=== PATIENT | female | born 1995 | race Caucasian/White ===

== ENCOUNTER 2016-09-12 16:39 | Emergency (ER) | payer BC ==
[~2016-09-12] VITALS: Ht 167.6 cm; Wt 51.6 kg
[~2016-09-12 16:39] MED LIST: CIPR-255 PO; ONDA4TAB7 SL
[2016-09-12 16:44] VITALS: TEMP 37.2; Ht 167.6 cm; Wt 51.6 kg
[2016-09-12] MEDS ORDERED: IBUPROFEN 600 MG TAB PO STA (17:12)
[2016-09-12] MEDS ORDERED: RABIES IMMUNE GLOBULIN (HUMAN) 150 INTER.UNIT/ML 2 ML VIAL IM. ONE (17:15)
[2016-09-12] MEDS ORDERED: RABIES VACCINE (IMOVAX) HUMAN DIPL CELL 2.5 INTER.UNIT/ML SYR IM. ONE (17:15)
[2016-09-12] MEDS ORDERED: METR-163 PO (18:00)
[2016-09-12] MEDS ORDERED: CIPR1TAB10 PO (18:00)
[2016-09-12 18:20] VITALS: BP 137/90; PULSE 81; O2SAT 98
--- NOTE | 2016-09-13 02:14 | EMERGENCY ROOM VISIT NOTE ---
ED Visit Note First contact with patient: 16:49 Chief Complaint: Cat bite. History of Present Illness: Ms. Cuadra is a 20-year-old female who ambulates into the ED reporting a cat bite on the posterior right shoulder. Patient reports last evening she was attempted to separate to cats that were fighting. One of was her roommates and the other one was a stray cat. She reports when she picked up the roommates cat and put it over the shoulder the cat bit her. She did clean the cat bite. She does report the cat's immunization status is not up-to-date for rabies. Additionally she reports she is having a throbbing stabbing sensation in the area of her cat bite. She rates her discomfort 5/10. Her pain is nonradiating. Her pain worsens with palpation. She has not identified any alleviating factors related to the pain. She has not taken any medications for pain prior to arrival at the hospital. She denies any associated symptoms. She does report she cleansed the wound with soap and water and covered with a small amount of antibiotic ointment. She denies fevers, chills, sweats, chest pain, shortness of breath, abdominal pain, decreased appetite, nausea, vomiting, extremity weakness/numbness/ tingling. Review of Systems: As noted above in history of present illness. 8 body systems were reviewed and found to be negative as noted above. Past Medical History: Acid reflux. Current Medications: control. Allergies to Medications: Penicillin. Social History: Patient is currently employed; she feels safe in her home environment; she denies tobacco use; she admits to alcohol use. Tetanus Immunization Status: Patient did not feel she was up-to-date on her tetanus but does report just this year she graduated college indicating she should've been updated at age 16. Physical Examination: Vital Signs: Date Time Temp Pulse Resp B/P Pulse Ox O2 Delivery O2 Flow Rate FiO2 09/12/16 18:20 81 18 137/90 98 09/12/16 16:44 37.2 91 18 140/89 98 Room Air GENERAL: 20-year-old female in mild distress due to pain, nontoxic-appearing, afebrile and hemodynamically stable. NEUROLOGICAL: Awake, alert and oriented to person, place and time. Answering questions appropriately and following commands. Normal gait. Good hand eye coordination. SKIN: Warm, dry and pink. Right Shoulder: Over the posterior shoulder I do see 2 puncture wounds. The areas mildly erythematous but not edematous. There is no lymphangitis. There is no appearance of cellulitis. HEENT: Atraumatic and normocephalic. THORAX: Lungs sounds are clear to auscultation and equal bilaterally with symmetrical chest wall. ABDOMEN: Flat, soft and nontender. Positive bowel sounds in all quadrants. No guarding, rigidity or organomegaly. RIGHT UPPER EXTREMITY: No gross bony deformities. Bites as noted above under SKIN. Full range of motion of the shoulder, elbow, forearm or wrist. All distal neurovascular statuses are intact and equal bilaterally. Patient is assessed as noted above. ED Course: Patient is assessed as noted above. Patient was given 600 mg of ibuprofen by mouth for pain, 2.5 IU of rabies vaccination IM and 1032 IU of rabies immunoglobulin IM. Patient was observed in the emergency department and had no reactions to her medications. Patient was educated about today's findings and instructed on her treatment plan ; she verbalizes understanding and agreement with this plan. Clinical Impression: Cat bite. Need for rabies prophylaxis. Disposition: Patient discharged home in stable condition; prior to departure she was reassessed and subjectively reported she was feeling slightly worse with all her immunizations in the form of pain. Plan: Patient was educated on comfort measures, wound care, signs of infection and mild and moderate side effects of her rabies vaccination series. Patient was prescribed ciprofloxacin 500 mg for 10 days and 500 mg of Flagyl 3 times a day for 10 days for antibiotic coverage. Patient was encouraged to follow-up with her primary care provider for mild side effects from the vaccinations. Patient was encouraged return to ED for signs of infection, serious or moderate side effects from vaccinations, worsening pain or any new/concerning symptoms.
[2016-09-26] MEDS ORDERED: BCPILLS PO (16:52)
== END 2016-09-12 18:22 | disposition home or self-care (01) ==
LOC: C.EDB 16:40 → C.EDD 18:22
DX: S41.051A Open bite of right shoulder, initial encounter (principal); W55.01XA Bitten by cat, initial encounter; K21.9 Gastro-esophageal reflux disease without esophagitis; Z79.3 Long term (current) use of hormonal contraceptives; Z23 Encounter for immunization

== ENCOUNTER 2016-09-15 12:46 | Emergency (ER) | payer BC ==
[~2016-09-15] VITALS: Ht 167.6 cm; Wt 52.1 kg
[~2016-09-15 12:46] MED LIST changes: -CIPR-255 PO; +CIPR1TAB10 PO; +METR-163 PO; -ONDA4TAB7 SL
[2016-09-15 12:47] VITALS: TEMP 36.6; Ht 167.6 cm; Wt 52.1 kg
[2016-09-15] MEDS ORDERED: RABIES VACCINE (IMOVAX) HUMAN DIPL CELL 2.5 INTER.UNIT/ML SYR IM. ONE (13:00)
--- NOTE | 2016-09-15 13:00 | EMERGENCY ROOM VISIT NOTE ---
ED Visit Note First contact with patient: 12:52 CHIEF COMPLAINT: Rabies prophylaxis HISTORY OF PRESENT ILLNESS: This 20-year-old female patient presents to the emergency department ambulatory for their second rabies shot. The patient has not had any complications from the previous injections. They deny any other complaints. REVIEW OF SYSTEMS: A 6 system review of systems was completed with positives and pertinent negatives listed in the HPI. ALLERGIES: Cefaclor, penicillin MEDICATIONS: Unchanged from previous PMH: Unchanged from previous visit. PHYSICAL EXAM: Vital Signs: Reviewed Nurse's notes, vital signs stable. GENERAL : This is a 20-year-old female, in no acute distress, well-developed, well- nourished. HEAD: Atraumatic, without temporal or scalp tenderness. EYES: PERRLA, EOMI, no discharge or injection. SKIN: Normal. NEUROLOGICAL: Alert and cooperative. Sensory and motor functions grossly intact. EMERGENCY DEPARTMENT COURSE: I examined the patient. The patient was given Imovax 1ml IM. The patient was observed for 20 minutes with no reaction. The patient was discharged home in stable condition. DIAGNOSIS: Rabies prophylaxis DISCHARGE INSTRUCTIONS: Continue vaccination schedule as directed. Return for any complications. Problem List Medical Problems: (1) Anxiety Status: Chronic (2) Depression Status: Chronic (3) Generalized anxiety disorder Status: Chronic (4) Panic disorder Status: Chronic Current/Historical Medications Scheduled Control Pills ( Control Pills), 1 TAB PO DAILY Ciprofloxacin Hcl (Cipro), 500 MG PO BID Metronidazole (Flagyl), 500 MG PO TID Allergies Coded Allergies: Cefaclor (Verified Allergy, Unknown, HIVES, 09/15/16) Penicillins (Verified Allergy, Unknown, HIVES, 09/15/16) Vital Signs Date Time Temp Pulse Resp B/P Pulse Ox O2 Delivery O2 Flow Rate FiO2 09/15/16 13:53 82 18 112/64 98 09/15/16 12:47 36.6 66 16 113/78 98 Room Air Medications Administered Medications (Trade) Dose Ordered Sig/Kiya Route Start Time Stop Time Status Last Admin Dose Admin Rabies Vaccine Human Diploid Cell (Imovax Rabies) 2.5 interunit ONCE ONCE IM. 09/15/16 13:00 09/15/16 13:01 DC 09/15/16 13:05 2.5 INTERUNIT Departure Information Dispostion Home / Self-Care Condition GOOD Referrals No Doctor, Assigned (PCP) Patient Instructions My [facility]
[2016-09-15 13:53] VITALS: BP 112/64; PULSE 82; O2SAT 98
[2016-09-26] MEDS ORDERED: BCPILLS PO (16:52)
== END 2016-09-15 13:53 | disposition home or self-care (01) ==
LOC: C.EDB 12:49 → C.EDD 13:53
DX: Z23 Encounter for immunization (principal); Z20.3 Contact with and (suspected) exposure to rabies; Z41.9 Encounter for procedure for purposes other than remedying health state, unspecified; F32.9 Major depressive disorder, single episode, unspecified; F41.1 Generalized anxiety disorder; Z79.899 Other long term (current) drug therapy; Z88.0 Allergy status to penicillin; Z88.8 Allergy status to other drugs, medicaments and biological substances

== ENCOUNTER 2016-09-19 13:08 | Emergency (ER) | payer BC ==
[~2016-09-19] VITALS: Ht 167.6 cm; Wt 50.1 kg
[2016-09-19 13:12] VITALS: BP 134/86; PULSE 88; TEMP 36.7; O2SAT 96; Ht 167.6 cm; Wt 50.1 kg
[2016-09-19] MEDS ORDERED: RABIES VACCINE (IMOVAX) HUMAN DIPL CELL 2.5 INTER.UNIT/ML SYR IM. ONE (13:13)
--- NOTE | 2016-09-19 13:34 | EMERGENCY ROOM VISIT NOTE ---
ED Visit Note First contact with patient: 13:16 CHIEF COMPLAINT: Rabies shot #3 HISTORY OF PRESENT ILLNESS: Patient is a 20-year-old white female who returns to the emergency department as advised for her third rabies vaccination. She was potentially exposed to rabies when she was bitten by a stray cat on the right shoulder one week ago. She was seen and evaluated here. She is taking ciprofloxacin and metronidazole as prescribed. She reports a lot of GI side effects from the antibiotics. She reports that her wounds are healing well. She denies any problems or concerns regarding the injections. REVIEW OF SYSTEMS: Review of systems as per HPI. All other systems reviewed were negative. At least 6 systems reviewed. PMH: Reviewed and unchanged from prior visit. SOCIAL HISTORY: Patient lives at home. PHYSICAL EXAM: Vital Signs: Reviewed Nurse's notes. HEAD: Atraumatic, without temporal or scalp tenderness. EYES: PERRL, EOMI, no discharge or injection. SKIN: Healing puncture wounds on the posterior right shoulder without signs of erythema, drainage or discharge. NEUROLOGICAL: Alert and cooperative. Sensory and motor functions grossly intact. EMERGENCY DEPARTMENT COURSE: The patient was given Imovax IM. With regards to the bite sites, wounds well-healed, without any ongoing signs of infection. She has been on antibiotics for 1 week, and given that things are well-healed and she is not tolerating the side effects well, it was felt that she could discontinue the antibiotics at this point. She will return to the emergency Department in one week for her final rabies vaccination, sooner for any problems or concerns. Problem List Medical Problems: (1) Anxiety Status: Chronic (2) Depression Status: Chronic (3) Generalized anxiety disorder Status: Chronic (4) Panic disorder Status: Chronic Current/Historical Medications Scheduled Control Pills ( Control Pills), 1 TAB PO DAILY Ciprofloxacin Hcl (Cipro), 500 MG PO BID Metronidazole (Flagyl), 500 MG PO TID Allergies Coded Allergies: Cefaclor (Verified Allergy, Unknown, HIVES, 09/19/16) Penicillins (Verified Allergy, Unknown, HIVES, 09/19/16) Vital Signs Date Time Temp Pulse Resp B/P Pulse Ox O2 Delivery O2 Flow Rate FiO2 09/19/16 13:12 36.7 88 18 134/86 96 Room Air Medications Administered Medications (Trade) Dose Ordered Sig/Kiya Route Start Time Stop Time Status Last Admin Dose Admin Rabies Vaccine Human Diploid Cell (Imovax Rabies) 2.5 interunit STK-MED ONCE IM. 09/19/16 13:13 09/19/16 13:14 DC 09/19/16 13:15 2.5 INTERUNIT Departure Information Impression Primary Impression: Rabies, need for prophylactic vaccination against Referrals No Doctor, Assigned (PCP) Patient Instructions My [facility] Additional Instructions May stop Cipro and metronidazole. Return to the emergency department on 09/26 for your final rabies vaccination, sooner for any problems or concerns.
[2016-09-26] MEDS ORDERED: BCPILLS PO (16:52)
== END 2016-09-19 13:43 | disposition home or self-care (01) ==
LOC: C.EDB 13:10 → C.EDD 13:43
DX: Z20.3 Contact with and (suspected) exposure to rabies (principal); F41.9 Anxiety disorder, unspecified; F32.9 Major depressive disorder, single episode, unspecified; Z79.3 Long term (current) use of hormonal contraceptives; Z79.2 Long term (current) use of antibiotics

== ENCOUNTER 2016-09-26 18:34 | Emergency (ER) | payer BC ==
[~2016-09-26] VITALS: Ht 167.6 cm; Wt 52.8 kg
[~2016-09-26 18:34] MED LIST changes: +BCPILLS PO; -CIPR1TAB10 PO; -METR-163 PO
[2016-09-26 18:46] VITALS: TEMP 37.1; Ht 167.6 cm; Wt 52.8 kg
[2016-09-26] MEDS ORDERED: RABIES VACCINE (IMOVAX) HUMAN DIPL CELL 2.5 INTER.UNIT/ML SYR IM. ONE (19:15)
--- NOTE | 2016-09-26 19:19 | EMERGENCY ROOM VISIT NOTE ---
History First contact with patient: 19:03 Chief Complaint: RABIES VACCINE REPEAT VISIT Stated Complaint: 3RD SERIES RABIES SHOT History of Present Illness The patient is a 20 year old female who presents to the Emergency Room for her fourth and final Imovax injection. The patient was bitten by a stray cat 2 weeks ago. Her entire treatment has been performed at our emergency department. She reports that the wound has healed well. She did complete her antibiotics as prescribed. She denies any pain at the site of injury. Review of Systems 6 system review was performed and was negative except for pertinent positives and negatives as indicated in history of present illness Past Medical/Surgical History Medical Problems: (1) Anxiety (2) Depression (3) Generalized anxiety disorder (4) Panic disorder Family History Cancer Diabetes mellitus Hypertension Lung disease Social History Smoking Status: Never Smoker Alcohol Use: occasionally Drug Use: none Marital Status: single Housing Status: lives with roommate Occupation Status: [employer] student Current/Historical Medications Scheduled Control Pills ( Control Pills), 1 TAB PO DAILY Allergies Coded Allergies: Cefaclor (Verified Allergy, Unknown, HIVES, 09/19/16) Penicillins (Verified Allergy, Unknown, HIVES, 09/19/16) Physical Exam Vital Signs Date Time Temp Pulse Resp B/P (MAP) Pulse Ox O2 Delivery O2 Flow Rate FiO2 09/26/16 18:46 37.1 80 18 114/80 98 Room Air Physical Exam CONSTITUTIONAL: Healthy and well nourished. Alert and oriented X 3 with positive affect. HEENT: Normocephalic, atraumatic. Pupils equal, round and reactive. NECK: Full active range of motion without discomfort. LYMPHATICS: No cervical chain adenopathy noted. MUSCULOSKELETAL: Full range of motion of the right shoulder without discomfort. INTEGUMENTARY: Examination of the right posterior shoulder shows well-healed puncture wounds without any significant erythema, fluctuance or induration to palpation. NEUROLOGIC: No focal neurologic deficits noted. Medical Decision & Procedures ED Course Patient history and physical exam were performed. The patient was administered Imovax IM without adverse reaction. The patient was advised that if she has any future rabies exposure, she should advise her healthcare provider that she has already undergone this post exposure prophylaxis series. The patient was happy with plan of care, and denied any pain at the time of discharge. Medical Decision Impression Primary Impression: Rabies, need for prophylactic vaccination against Additional Impression: Cat bite Departure Information Dispostion Home / Self-Care Forms HOME CARE DOCUMENTATION FORM, IMPORTANT VISIT INFORMATION Patient Instructions My [facility] Additional Instructions If you have any potential rabies exposure in the future, advised to your health care provider that you have already undergone this rabies immunization series. Problem Qualifiers Additional Impression: Cat bite Encounter type: subsequent encounter Qualified Codes: W55.01XD - Bitten by cat, subsequent encounter
[2016-09-26 19:38] VITALS: BP 116/60; PULSE 62; O2SAT 98
== END 2016-09-26 19:39 | disposition home or self-care (01) ==
LOC: C.EDB 18:35 → C.EDD 19:39
DX: S41.051D Open bite of right shoulder, subsequent encounter (principal); W55.01XD Bitten by cat, subsequent encounter; Z20.3 Contact with and (suspected) exposure to rabies; F32.9 Major depressive disorder, single episode, unspecified; F41.0 Panic disorder [episodic paroxysmal anxiety]; Z80.9 Family history of malignant neoplasm, unspecified; Z83.3 Family history of diabetes mellitus; Z82.49 Family history of ischemic heart disease and other diseases of the circulatory system; Z83.6 Family history of other diseases of the respiratory system; Z79.3 Long term (current) use of hormonal contraceptives

== ENCOUNTER → 2017-05-07 | Outpatient (CLI) | payer BC | END | disposition home or self-care (01) | LOC: C.RDSM 11:43 | PROVIDERS: ATTEND Physical Medicine & Rehabilitation Sports Medicine | DX: M79.674 Pain in right toe(s) (principal) ==